=== PATIENT | female | born 1930 | race Caucasian/White ===

== ENCOUNTER 2016-08-17 11:21 | Emergency (ER) | payer OTHER ==
[2016-08-17 11:26] VITALS: TEMP 97.5
--- NOTE | 2016-08-17 11:38 | CPEKG ---
Heart Rate: 94 RR Interval: 638 P-R Interval: 172 QRSD Interval: 86 QT Interval: 360 QTC Interval: 451 P [place]: 42 QRS [place]: -9 T Wave [place]: -3 EKG Severity - BORDERLINE ECG - EKG Impression: SINUS RHYTHM EKG Impression: BORDERLINE T ABNORMALITIES, INFERIOR LEADS Electronically Signed By: Hannah Gan 17-Aug-2016 14:08:16
[2016-08-17 11:47] LABS: % IMMATURE GRANULYOCYTES 0.8 % (0.0-1.1); ABSOLUTE IMMATURE GRANULOCYTES 0.08 10^3/uL (0.00-0.10); ADD DIFF? NO; ADD MORPH? NO; ADD SCAN? NO; ATYPICAL LYMPHOCYTE FLAG 0 (0-99); FRAGMENT RBC FLAG 0 (0-99); HEMATOCRIT 37.1 % (38.0-47.0); HEMOGLOBIN 11.9 g/dL (12.6-16.3); LEFT SHIFT FLG 0 (0-99); LIPEMIA HEMOLYSIS FLAG 80 (0-99); MEAN CELL HEMOGLOBIN 31.3 pg (27.9-34.1); MEAN CELL HEMOGLOBIN CONCENTR. 32.1 g/dL (32.4-36.7); MEAN CELL VOLUME 97.6 fL (81.5-99.8); MEAN PLATELET VOLUME 8.9 fL (8.7-11.7); PLATELET CLUMPS FLAG 0 (0-99); PLATELET COUNT 324 10^3/uL (150-400); RED CELL DISTRIBUTION WIDTH 15.7 % (11.5-15.2)
[2016-08-17 12:05] LABS: ANION GAP 14 mEq/L (8-16); CALCIUM 9.7 mg/dL (8.5-10.4); CARBON DIOXIDE 21 mEq/l (22-31); CHLORIDE 108 mEq/L (97-110); CREATININE 1.2 mg/dL (0.6-1.0); GLOMERULAR FILTRATION RATE 43; GLUCOSE 78 mg/dL (70-100); POTASSIUM 4.2 mEq/L (3.5-5.2); SODIUM 143 mEq/L (134-144)
--- NOTE | 2016-08-17 12:46 | EDPHY ---
H & P Time Seen by Provider: 08/17/16 11:49 HPI/ROS: CHIEF COMPLAINT: Dizziness. HISTORY OF PRESENT ILLNESS: The patient is an 85 year old female sent here from [facility] for new onset of dizziness. Onset of a room spinning sensation this morning when getting out of bed. The dizziness increases with position change and with head movement. Resolves when she is in a sitting position and remains still. She is slightly more unsteady when using her walker to ambulate, but if she moves slowly she does not feel like she will fall. She denies RAMÍREZ, head/neck trauma, weakness/numbness, abdominal pain, shortness of breath, or chest pain. REVIEW OF SYSTEMS: Aside from elements discussed in the HPI, a comprehensive 10-point review of systems was reviewed and is negative. Past Medical/Surgical History: Type 2 diabetes. PSH: Cholecystectomy, Appendectomy Social History: Family at bedside. Smoking Status: Never smoked Physical Exam: General Appearance: Alert, pleasant and talkative Eyes: Lateral nystagmus. Fast component to the left ENT, Mouth: Mucous membranes moist Neck: Normal inspection Respiratory: Lungs are clear to auscultation Cardiovascular: Regular rate and rhythm Gastrointestinal: Abdomen is soft and non-tender Neurological: Alert, oriented x3, cranial nerves II through XII intact, motor 5 /5, sensory intact to light touch, normal gait Skin: Warm and dry, no rash Extremities: Nontender, no pedal edema Psychiatric: Mood and affect normal Constitutional: Initial Vital Signs Temperature (C) 36.4 C 08/17/16 11:23 Heart Rate 100 08/17/16 11:23 Respiratory Rate 18 08/17/16 11:23 Blood Pressure 123/67 H 08/17/16 11:23 O2 Sat (%) 96 08/17/16 11:23 O2 Delivery Mode Room Air Allergies/Adverse Reactions: No Allergies [NKDA] Allergy (Verified 01/30/14 23:16) Home Medications: Medication Instructions Recorded Aspirin EC [Aspirin EC 81 mg (*)] 81 mg PO HS 01/27/14 Cholecalciferol Vit D3 [Vitamin D3] 400 units PO DAILY 01/27/14 Esomeprazole Magnesium [Nexium] 20 mg PO DAILY 01/27/14 Glipizide [Glipizide 5 mg (RX)] 2.5 mg PO DAILYAC 06/19/14 Herbals/Supplements -Info Only 1 ea PO DAILY 01/27/14 Levothyroxine [Synthroid 100 mcg 100 mcg PO DAILY06 01/27/14 (*)] Vit A/Vit C/Vit E/Zinc/Copper 1 each PO BID 01/27/14 [Preservision Areds Softgel] Meclizine HCl [Meclizine HCl 25 mg 25 mg PO TID PRN #15 tab 08/17/16 (RX,OTC)] Medical Decision Making - Diagnostics EKG Interpretation: EKG interpreted by me reveals NSR, rate 94, non-specific T changes inferiorly. ED Course/Re-evaluation: This patient presents with vertigo, without concerning signs or symptoms suggestive of a central etiology for the vertigo. The vertigo is clearly exacerbated by movement and she has normal neurologic exam. I will prescribe Antivert. Her family will stay with her for the next 24 hours. She was encouraged to follow up with ENT if the symptoms persist. Differential Diagnosis: includes though not limited to CVA, TIA, ICH, Meniere's disease, ACS - Data Points Laboratory Results: Laboratory Results 08/17/16 11:40 08/17/16 11:40 Medications Given: Discontinued Medications Meclizine HCl (Meclizine Hcl) 25 mg PO EDNOW ONE Stop: 08/17/16 12:58 Last Admin: 08/17/16 13:04 Dose: 25 mg Departure - Departure Disposition: Home, Routine, Self-Care Clinical Impression: Vertigo Condition: Good Instructions: Vertigo (ED) Additional Instructions: Take Meclizine as prescribed for dizziness. If symptoms do not improve in 2 days , followup with ENT specialist. Referrals: Yrn Richardson MD [Medical Doctor] - As per Instructions (Ear, Nose, Throat specialist) Prescriptions: Meclizine HCl [Meclizine HCl 25 mg (RX,OTC)] 25 mg PO TID PRN #15 tab PRN Reason: Dizziness Report Scribed for: Hannah Gan Report Scribed by: Allison Holloway Date of Report: 08/17/16 Time of Report: 12:45 Physician Review and Approval Statement: 08/17/16 12:45 Portions of this note were transcribed by a medical records tech. I personally performed the history, physical exam, and medical decision-making; and confirmed the accuracy of the information in the transcribed note.
[2016-08-17] MEDS ORDERED: MECLIZINE HCL 25 MG TAB PO ONE (12:57)
[2016-08-17] MEDS ORDERED: MECLIZINE HCL 25 MG TAB ONE (12:58)
[2016-08-17 13:05] VITALS: BP 118/58; PULSE 74; RESP 20; O2SAT 100
== END 2016-08-17 13:23 | disposition home or self-care (01) ==
DX: R42 Dizziness and giddiness (principal); E11.9 Type 2 diabetes mellitus without complications; Z79.82 Long term (current) use of aspirin

== ENCOUNTER → 2016-12-12 | Outpatient (CLI) | payer OTHER | LOC: BMCIMAGING 10:35 | PROVIDERS: ATTEND Internal Medicine | DX: M85.9 Disorder of bone density and structure, unspecified (principal) ==

== ENCOUNTER 2018-06-01 15:31 | Emergency (ER) | payer OTHER ==
[2018-06-01 15:53] LABS: PLATELET COUNT 268 10^3/uL (150-400)
--- NOTE | 2018-06-01 16:11 | EDPHY ---
H & P Time Seen by Provider: 06/01/18 15:45 HPI/ROS: CHIEF COMPLAINT: Fall HISTORY OF PRESENT ILLNESS: Patient is an 87-year-old female presents emergency department after having a mechanical fall. Patient states she was diagnosed with the UTI on Friday. This was diagnosed because she was having elevated blood glucose levels. She was started on antibiotics and took an entire 3 day course. She has had no dysuria frequency. The patient has been feeling well. Prior to arrival the patient was walking to get her walker. She subsequently fell between 2 double beds pushed together. She was on the floor but unable to get up. She denies any trauma with the fall. EMS arrived and brought to the emergency department to"be checked out."Patient has no complaints at this time. She is feeling well. She denied any preceding symptoms such as lightheadedness, dizziness or chest pain. Patient has no leg or hip pain. REVIEW OF SYSTEMS: 10 systems were reveiwed and are negative with the exception of the elements mentioned in the history of present illness. Past Medical/Surgical History: Includes diabetes type 2, recurrent UTI Past surgical history: Includes cholecystectomy, appendectomy Social history: Patient lives at home PCP Dr. Hernandez Smoking Status: Never smoked Physical Exam: Vitals noted GENERAL: Well-appearing, in no acute distress, alert. HEENT: Eyes normal to inspection, normal pharynx, no signs of dehydration. NECK: Normal, supple. RESPIRATORY: Clear to auscultation bilaterally, no rales, rhonchi or wheezing. CVS: Regular rate and rhythm, no rubs, murmurs, or gallops. ABDOMEN: Soft, nontender, nondistended, no organomegaly. BACK: Normal to inspection, no CVA tenderness. Pelvis: Stable. No tenderness palpation. Full range of motion. SKIN: Normal color, no rash, warm, dry. No pallor. EXTREMITIES: No pedal edema, no calf tenderness, no Homans sign or cords, no joint swelling. NEURO/PSYCH: Alert and oriented, normal mood and affect, normal motor sensory exam. No obvious cranial nerve deficit. Constitutional: Initial Vital Signs Temperature (C) 36.5 C 06/01/18 15:35 Heart Rate 91 06/01/18 15:35 Respiratory Rate 16 06/01/18 15:35 Blood Pressure 134/88 H 06/01/18 15:35 O2 Sat (%) 95 06/01/18 15:35 O2 Delivery Mode Room Air Allergies/Adverse Reactions: No Allergies [NKDA] Allergy (Verified 01/30/14 23:16) Home Medications: Medication Instructions Recorded Aspirin EC [Aspirin EC 81 mg (*)] 81 mg PO HS 01/27/14 Cholecalciferol Vit D3 [Vitamin D3] 400 units PO DAILY 01/27/14 Esomeprazole Magnesium [Nexium] 20 mg PO DAILY 01/27/14 Glipizide [Glipizide 5 mg (RX)] 2.5 mg PO DAILYAC 01/27/14 Herbals/Supplements -Info Only 1 ea PO DAILY 01/27/14 Levothyroxine [Synthroid 100 mcg 100 mcg PO DAILY06 01/27/14 (*)] Vit A/Vit C/Vit E/Zinc/Copper 1 each PO BID 01/27/14 [Preservision Areds Softgel] Meclizine HCl [Meclizine HCl 25 mg 25 mg PO TID PRN #15 tab 08/17/16 (RX,OTC)] Medical Decision Making ED Course/Re-evaluation: In the emergency department I discussed possible etiologies with the patient and family. I answered all her questions. At this time the patient has no urinary symptoms. She is scheduled to have her urine rechecked with a primary care physician tomorrow. I offered to test her urine in the emergency department but she does not have to urinate at this time. She felt comfortable waiting till tomorrow. The patient was able to ambulate to her baseline. She had a nonfocal exam with no signs of trauma. I do not feel the patient needs an EKG is I think dysrhythmia or ACS are unlikely. Laboratory studies were ordered in triage. The patient was noted to have anion gap. Patient was at noted to have an elevated creatinine of 2.1. She has previously had elevated creatinine a few years ago with levels of 1.9 and 1.8. Her most recent renal function was 1.4. Because of the elevated creatinine in her recent UTI I discussed the case with Dr. Givens (transition of care specialist for Dr. Hernandez). The patient is scheduled to have a urine study tomorrow. She will also have her blood drawn to recheck her chemistry panel. The family is aware and felt comfortable with the plan. Patient was given warnings prior to leaving. Differential Diagnosis: My differential includes but is not limited to renal insufficiency, renal failure, urinary tract infection, pyelonephritis, electrolyte abnormality, sugar abnormality, dysrhythmia, hip fracture, hip contusion, CVA - Data Points Laboratory Results: Laboratory Results 06/01/18 15:30 06/01/18 15:30 06/01/18 06/01/18 15:30 15:30 WBC 7.68 10^3/uL 10^3/uL (3.80-9.50) RBC 3.96 10^6/uL L 10^6/uL (4.18-5.33) Hgb 12.4 g/dL L g/dL (12.6-16.3) Hct 36.7 % L % (38.0-47.0) MCV 92.7 fL fL (81.5-99.8) MCH 31.3 pg pg (27.9-34.1) MCHC 33.8 g/dL g/dL (32.4-36.7) RDW 14.0 % % (11.5-15.2) Plt Count 268 10^3/uL 10^3/uL (150-400) MPV 10.7 fL fL (8.7-11.7) Neut % (Auto) 56.2 % % (39.3-74.2) Lymph % (Auto) 26.2 % % (15.0-45.0) Teller % (Auto) 11.2 % % (4.5-13.0) Eos % (Auto) 4.9 % % (0.6-7.6) Baso % (Auto) 0.5 % % (0.3-1.7) Nucleat RBC Rel Count 0.0 % % (0.0-0.2) Absolute Neuts (auto) 4.31 10^3/uL 10^3/uL (1.70-6.50) Absolute Lymphs (auto) 2.01 10^3/uL 10^3/uL (1.00-3.00) Absolute Monos (auto) 0.86 10^3/uL H 10^3/uL (0.30-0.80) Absolute Eos (auto) 0.38 10^3/uL 10^3/uL (0.03-0.40) Absolute Basos (auto) 0.04 10^3/uL 10^3/uL (0.02-0.10) Absolute Nucleated RBC 0.00 10^3/uL 10^3/uL (0-0.01) Immature Gran % 1.0 % % (0.0-1.1) Immature Gran # 0.08 10^3/uL 10^3/uL (0.00-0.10) Sodium 136 mEq/L mEq/L (135-145) Potassium 4.7 mEq/L mEq/L (3.3-5.0) Chloride 102 mEq/L mEq/L (97-110) Carbon Dioxide 19 mEq/l L mEq/l (22-31) Anion Gap 15 mEq/L H mEq/L (6-14) BUN 38 mg/dL H mg/dL (7-23) Creatinine 2.1 mg/dL H mg/dL (0.6-1.0) Estimated GFR 22 Glucose 331 mg/dL H mg/dL (70-100) Calcium 9.7 mg/dL mg/dL (8.5-10.4) Departure - Departure Disposition: Home, Routine, Self-Care Clinical Impression: Renal insufficiency Fall Qualifiers: Encounter type: initial encounter Qualified Code(s): W19.XXXA - Unspecified fall, initial encounter Condition: Good Instructions: Fall Prevention (ED), Impaired Kidney Function (ED) Additional Instructions: You were noted to have an elevated creatinine in the emergency department. You need to have your blood drawn tomorrow in addition to repeat urine. Return with increasing weakness, abdominal pain, nausea, vomiting or fever. Referrals: Roselia Hernandez MD [[facility] [place] Primary Care Provider] - 1 day without fail
[2018-06-01 16:22] VITALS: BP 133/82
== END 2018-06-01 16:41 | disposition home or self-care (01) ==
LOC: EDUNIT#
DX: N28.9 Disorder of kidney and ureter, unspecified (principal)

== ENCOUNTER → 2019-01-28 | Outpatient (CLI) | payer OTHER | LOC: BMCIMAGING 09:29 ==

== ENCOUNTER → 2019-02-02 | Outpatient (CLI) | payer OTHER | LOC: BMCIMAGING 09:18 ==